=== PATIENT | female | born 1990 | race Caucasian/White ===

== ENCOUNTER 2018-06-24 03:35 | Inpatient (IN) | payer MEDICAID ==
[~2018-06-24] VITALS: Ht 160 cm; Wt 69.5 kg
[2018-06-24] VITALS (20 sets, daily range): BP systolic 99–118; BP diastolic 52–84; PULSE 64–82; TEMP 97.6–98.5
[~2018-06-24 03:35] MED LIST: CALCIUM500 MG PO; IBU600 MG PO; MOTRIN 600600 MG/TAB PO; MULTIPLE VITAMI1 CAP PO; PERCOCET 325 MG1 TA2 PO; PRENATAL1 TA7 PO; SEPTRA DS 8001 TAB PO
[2018-06-24 04:27] LABS: BASO % 0.3 % (0.0-2.0); EOS % 0.3 % (0-4.0); GRAN # 10.5 (1.4-6.5); GRAN % 87.4 % (42.2-75.2); HEMOGLOBIN 12.2 g/dl (12.5-16.0); LYMPH # 0.9 (1.2-3.4); LYMPH % 7.7 % (20.0-51.0); MEAN CELL VOLUME 98 fl (80.0-100.0); MEAN CORPUSCULAR HEMOGLOBIN 33 pg (27.0-31.0); MEAN CORPUSCULAR HGB CONC 34 g/dl (33.0-37.0); MEAN PLATELET VOLUME 10.2 fl (7.4-10.4); MONO # 0.4 (0.1-0.6); MONO % 3.5 % (1.7-9.3); PLATELET COUNT 193 K/mm3 (130-400); RED BLOOD COUNT 3.67 M/mm3 (4.10-5.30)
[2018-06-24 04:36] LABS: HEMATOCRIT 35.8 % (37.0-47.0)
[2018-06-25 02:00] VITALS: BP 110/68; PULSE 68; TEMP 97.9
[2018-06-25 08:38] VITALS: BP 110/62; PULSE 70; TEMP 97.9
[2018-06-25] MEDS ORDERED: IBU600 MG PO (11:43)
== END 2018-06-25 12:31 | disposition home or self-care (01) | DRG 775 ==
LOC: LDRO 03:35 → OB 03:36 → LDR 03:36 → OB 08:00
PROVIDERS: Obstetrics & Gynecology
PROC: 10E0XZZ Delivery of Products of Conception, External Approach (ICD-10-PCS; principal; 2018-06-24)
PROC: 0KQM0ZZ Repair Perineum Muscle, Open Approach (ICD-10-PCS; 2018-06-24)
DX: O70.1 Second degree perineal laceration during delivery (principal); Z37.0 Single live birth; Z3A.38 38 weeks gestation of pregnancy
CPT/HCPCS: J2590; J7120

== ENCOUNTER 2020-04-03 07:56 | Inpatient (IN) | payer MEDICAID ==
[~2020-04-03] VITALS: Ht 160 cm; Wt 77.3 kg
[2020-04-13] VITALS (31 sets, daily range): BP systolic 98–129; BP diastolic 51–81; PULSE 62–90; TEMP 97.5–98.1
[2020-04-13 08:05] LABS: BASO % 0.2 % (0.0-2.0); EOS # 0.1 (0.0-0.7); EOS % 0.6 % (0-4.0); GRAN # 8.2 (1.4-6.5); GRAN % 81.3 % (42.2-75.2); LYMPH # 1.2 (1.2-3.4); LYMPH % 11.8 % (20.0-51.0); MEAN CELL VOLUME 96 fl (80.0-100.0); MEAN CORPUSCULAR HEMOGLOBIN 32 pg (27.0-31.0); MEAN CORPUSCULAR HGB CONC 34 g/dl (33.0-37.0); MEAN PLATELET VOLUME 10.8 fl (7.4-10.4); MONO # 0.5 (0.1-0.6); MONO % 5.3 % (1.7-9.3); PLATELET COUNT 221 K/mm3 (130-400); RED BLOOD COUNT 3.71 M/mm3 (4.10-5.30); REDCELL DISTRIBUTION WIDTH-CV 12.5 % (11.5-14.5)
[2020-04-13 08:18] LABS: HEMATOCRIT 35.7 % (37.0-47.0)
--- NOTE | 2020-04-13 10:45 | NUR ---
1032- EFM and TOCO unplugged. Pt. up to the bathroom, voided. 1035- Pt. back in bed. EFM and TOCO on and tracing. 1037- Dr. Magallon at bedside, E /-2. 1038- AROM, clear, small, odorless fluid. EFM and TOCO tracing. Will monitor.
--- NOTE | 2020-04-13 11:43 | NUR ---
1108- EFM tracing intermittently due to maternal position. RN at bedside, adjusted EFM and tracing. O2 SAT monitor on and tracing.
--- NOTE | 2020-04-13 11:51 | NUR ---
1125- EFM tracing intermittently due to maternal positioning. O2 SAT monitor on and tracing. RN at bedside, EFM adjusted and tracing.
--- NOTE | 2020-04-13 12:45 | NUR ---
EFM TRACING INTERMITTENTLY DUE TO MATERNAL POSITIONING. RN AT BEDSIDE. O2 SAT REMAINS ON AND TRACING.
--- NOTE | 2020-04-13 13:26 | NUR ---
1303- PITOCIN DECREASED TO 4MU BY Palak RODRIGUES RN PER VO. 1305- SVE BY Palak RODRIGUES RN /+1. 1308- DR. GARCIA TO BEDSIDE. MD INSTRUCTS RN TO PREPARE FOR DELIVERY. NURSERY NURSE CALLED TO BEDSIDE. PT AND ROOM PREPPED FOR DELIVERY. 1309- PITOCIN INCREASED TO 8MU BY Palak RODRIGUES RN PER MD VO. 1312- SVE BY DR. GARCIA -100/+1. PT. BEGINS PUSHING WITH CONTRACTIONS. 1324- DR. GARCIA STRAIGHT CATHED PT, MODERATE AMOUNT OF YELLOW, CLEAR URINE NOTED. 1326- SPONTANEOUS VAGINAL DELIVERY OF VIABLE FEMALE INFANT. 1330- SPONTANEOUS VAGINAL DELIVERY OF PLACENTA.
[2020-04-14] VITALS: BP 117/79; PULSE 54; TEMP 98.7
[2020-04-14 04:30] VITALS: BP 116/64; PULSE 61; TEMP 98.2
[2020-04-14 06:58] LABS: HEMOGLOBIN 11.8 g/dl (12.5-16.0)
[2020-04-14 07:08] LABS: HEMATOCRIT 35.9 % (37.0-47.0)
[2020-04-14 07:30] VITALS: BP 98/56; PULSE 71; TEMP 98.1
[2020-04-14] MEDS ORDERED: IBU600 MG PO (08:44)
[2020-04-14 11:30] VITALS: BP 93/53; PULSE 50; TEMP 97.7
== END 2020-04-14 14:45 | disposition home or self-care (01) | DRG 807 ==
LOC: LDRO 07:56 → LDR 07:56 → LDRO 08:00 → LDR 08:33 → EDSTATUS 11:23 → OB 04-13 07:11 → LDR 04-13 07:11 → OB 04-13 16:15
PROVIDERS: ADMIT Obstetrics & Gynecology
PROC: 10E0XZZ Delivery of Products of Conception, External Approach (ICD-10-PCS; principal; 2020-04-13)
PROC: 10907ZC Drainage of Amniotic Fluid, Therapeutic from Products of Conception, Via Natural or Artificial Opening (ICD-10-PCS; 2020-04-13)
PROC: 0HQ9XZZ Repair Perineum Skin, External Approach (ICD-10-PCS; 2020-04-13)
PROC: 3E033VJ Introduction of Other Hormone into Peripheral Vein, Percutaneous Approach (ICD-10-PCS; 2020-04-13)
DX: O36.5930 Maternal care for other known or suspected poor fetal growth, third trimester, not applicable or unspecified (principal); Z37.0 Single live birth; Z3A.39 39 weeks gestation of pregnancy; O70.0 First degree perineal laceration during delivery
CPT/HCPCS: J2590; J7120

== ENCOUNTER 2021-09-27 06:13 | Inpatient (IN) | payer MEDICAID ==
[~2021-09-27] VITALS: Ht 160 cm; Wt 80.5 kg
[2021-09-27] VITALS (33 sets, daily range): BP systolic 91–143; BP diastolic 58–78; PULSE 66–93; TEMP 97.3–98.3
--- NOTE | 2021-09-27 06:25 | NUR ---
PT AMBULATORY TO UNIT FOR INDUCTION OF LABOR. ASSISTED INTO GOWN AND ORIENTED TO LABOR ROOM, PLACED IN BED ON EFM AND TOCO. EFM TRACING CATEGORY 1 STRIP, TOCO TRACING IRREGULAR CONTRACTIONS. VITAL SIGNS STABLE. PT REPORTS SHE HAS BEEN HAVING "IRREGULAR CONTRACTIONS" FOR DAYS, BUT DENIES LEAKING OF FLUID OR WATER BREAKING. REPORTS POSITIVE MOVEMENT. EDUCATED ON PLAN OF CARE, AND DENIES FURTHER QUESTIONS OR CONCERNS. WILL PROCEED WITH IOL PER PROTOCOL.
[2021-09-27 07:10] LABS: BASO % 0.4 % (0.0-2.0); EOS # 0.1 K/mm3 (0.0-0.7); EOS % 0.7 % (0-4.0); GRAN # 8.5 K/mm3 (1.4-6.5); GRAN % 79.4 % (42.2-75.2); HEMOGLOBIN 11.5 g/dl (12.5-16.0); LYMPH # 1.4 K/mm3 (1.2-3.4); LYMPH % 13.3 % (20.0-51.0); MEAN CELL VOLUME 96 fl (80.0-100.0); MEAN CORPUSCULAR HEMOGLOBIN 32 pg (27.0-31.0); MEAN CORPUSCULAR HGB CONC 33 g/dl (33.0-37.0); MEAN PLATELET VOLUME 10.4 fl (7.4-10.4); MONO # 0.6 K/mm3 (0.1-0.6); MONO % 5.5 % (1.7-9.3); PLATELET COUNT 214 K/mm3 (130-400); REDCELL DISTRIBUTION WIDTH-CV 12.8 % (11.5-14.5)
[2021-09-27 07:11] LABS: HEMATOCRIT 34.7 % (37.0-47.0)
--- NOTE | 2021-09-27 08:12 | NUR ---
AT BEDSIDE, SVE /-3. AROM WITH CLEAR FLUID. PT REMAINS UNBLOCKED AND STATES SHE DOES NOT WANT AN EPIDURAL. PT TOLERATED PROCEDURE WELL.
--- NOTE | 2021-09-27 10:55 | NUR ---
AT BEDSIDE, DISCUSSING POC WITH PATIENT. EDUCATES PT HE IS GOING TO REMAIN ON THE UNIT UNTIL DELIVERY. SVE /-3 AT THIS TIME. PT UNBLOCKED, TOLERATING LABOR WELL. DENIES FURTHER NEEDS AT THIS TIME, NOTIFIED TO ALERT STAFF IF SHE BEGINS TO FEEL THE URGE TO PUSH OR INCREASED PRESSURE.
--- NOTE | 2021-09-27 13:18 | NUR ---
1310: AT BEDSIDE PT ALERTS STAFF MULTIPLE TIMES THAT SHE IS FEELING THE URGE TO PUSH. SVE COMPLETE AT THIS TIME, PT BEGINS PUSHING EFFECTIVELY. 1318: OF VIABLE FEMALE INFANT PER AT THIS TIME. INFANT PLACED ON MATERNAL ABDOMEN, CORD CLAMPED X2 AND CUT BY FOB. CARE OF ASSUMED BY AMBROSIO RN & BEBA RN. 1323: OF PLACENTA PER . PITOCIN BOLUS INFUSING PER ORDER. BEGINS REPAIR OF 1ST DEGREE PERINEAL LACERATION. PT'S LOCHIA WNL, FUNDUS FIRM AT UMBILICUS. WILL CONTINUE WITH PP CARES PER PROTOCOL. PT STABLE AT THIS TIME.
--- NOTE | 2021-09-27 15:15 | NUR ---
PT DENIES FEELING OF DIZZINESS OR LIGHT HEADED. REPORTS SHE IS READY TO ATTEMPT TO AMBULATE. ABULATORY TO RESTROOM [facility]. [place] CARE PROVIDED, CLEAN GOWN AND UNDERWEAR ON. PAD AND ICE PACK CHANGED AT THIS TIME, LOCHIA REMAINS SCANT WITH NO CLOTS. FUNDUS FIRM AT 2FB BELOW UMBILICUS. VITAL SIGNS STABLE, PT ASSISTED INTO WHEELCHAIR AND TO ROOM 218 FOR CARES.
[2021-09-28 01:57] VITALS: BP 118/64; PULSE 70; TEMP 98.3
[2021-09-28 05:00] VITALS: BP 108/72; PULSE 77; TEMP 97.8
[2021-09-28 07:10] LABS: HEMOGLOBIN 11.1 g/dl (12.5-16.0)
[2021-09-28 07:16] LABS: HEMATOCRIT 34.4 % (37.0-47.0)
[2021-09-28 08:10] VITALS: BP 104/64; PULSE 77; TEMP 97.9
[2021-09-28] MEDS ORDERED: IBU600 MG PO (08:53)
[2021-09-28] MEDS ORDERED: PERCOCET 325 MG1 TA2 PO (08:53)
== END 2021-09-28 15:25 | disposition home or self-care (01) | DRG 807 ==
LOC: LDR 06:13 → OB 15:45
PROVIDERS: ADMIT Obstetrics & Gynecology
PROC: 10E0XZZ Delivery of Products of Conception, External Approach (ICD-10-PCS; principal; 2021-09-27)
PROC: 0HQ9XZZ Repair Perineum Skin, External Approach (ICD-10-PCS; 2021-09-27)
DX: O99.62 Diseases of the digestive system complicating childbirth (principal); Z37.0 Single live birth; O70.0 First degree perineal laceration during delivery; Z3A.39 39 weeks gestation of pregnancy; K21.9 Gastro-esophageal reflux disease without esophagitis
CPT/HCPCS: J2590; J7120

== ENCOUNTER 2024-09-21 11:40 | Day surgery (SDC) | payer OTHER ==
[~2024-09-21] VITALS: Ht 160 cm; Wt 82.8 kg
[~2024-09-21 11:40] MED LIST changes: +LR 1,000 ML IV SCH; +Ondansetron 4 MG/2 ML VIAL IV PRN
[2024-09-21] MEDS ORDERED: CEPHALEXIN500 M1 PO (12:20)
[2024-09-21 12:34] VITALS: BP 131/87; PULSE 87; TEMP 97.3
[2024-09-21] MEDS ORDERED: Lidocaine PF 2% (20 MG/ML) 5 ML VIAL ONE (13:36)
[2024-09-21 14:10] VITALS: BP 107/80; PULSE 82; TEMP 97.9
[2024-09-21 14:25] VITALS: BP 110/84; PULSE 79
--- NOTE | 2024-09-21 14:39 | NUR ---
1410: PT TO BAY 6 FROM ENDO SUITE. AMBULATED FROM CART TO RECLINER X2 ASSIST. REPORT RECEIVED FROM ENDO NURSE. PT ALERT AND ORIENTED. DENIES PAIN OR NAUSEA. REQUESTING MUFFIN AND JUICE. RESTING IN RECLINER. CALL LIGHT IN REACH. NO FAMILY PRESENT. 1425: PT ALERT AND ORIENTED. VSS. TOLERATING MUFFIN AND JUICE. DENIES PAIN AND NAUSEA. RESTING IN RECLINER. CALL LIGHT IN REACH. ADDITIONAL BLANKET GIVEN FOR COMFORT. NO FAMILY PRESENT.
[2024-09-21 14:40] VITALS: BP 109/67; PULSE 75
--- NOTE | 2024-09-21 14:50 | NUR ---
1440: PT ALERT AND ORIENTED. . DENIES PAIN AND NAUSEA. RESTING IN RECLINER. IV DC'D AT THIS TIME. RESTING IN RECLINER. CALL LIGHT IN REACH. NO FAMILY PRESENT.
--- NOTE | 2024-09-21 15:12 | NUR ---
1450: PT DENIES ASSISTANCE DRESSING. 1500: DR. SANCHEZ IN TO SPEAK WITH PT. 1505: DISCHARGE EDUCATION DONE AT THIS TIME. PT STATED UNDERSTANDING OF DC INSTRUCTIONS. DC PAPERWORK GIVEN TO PT. 1510: PT AMBULATED INDEPENDENTLY FROM RECLINER TO WHEELCHAIR. PT OFF UNIT AT THIS TIME. PT DC TO HOME WITH FAMILY PER PERSONAL VEHICLE.
== END 2024-09-21 15:10 | disposition home or self-care (01) ==
LOC: SDCO 11:40
DX: K29.30 Chronic superficial gastritis without bleeding (principal); R10.9 Unspecified abdominal pain; K57.30 Diverticulosis of large intestine without perforation or abscess without bleeding; K64.0 First degree hemorrhoids; Z83.79 Family history of other diseases of the digestive system
CPT/HCPCS: J2704; J7120